=== PATIENT | male | born 1965 | race African-American/Black ===

== ENCOUNTER 2017-10-01 13:18 | Observation (INO) ==
[2017-10-01 14:28] LABS: Barbiturates Screen,Urine Negative (Negative); Benzodiazepines Screen,Urine Negative (Negative); Cannabinoid Screen,Urine Positive (Negative); Opiate Screen,Urine Positive (Negative); Phencyclidine Screen,Urine Negative (Negative)
[2017-10-01 14:31] LABS: Apearance,Urine CLEAR (Clear); Bilirubin,Urine Negative (Negative); Blood, Urine Small mg/dL (Negative); Glucose,Urine (UA) >=500 mg/dL (Negative); Hyaline Casts,Urine 9 /LPF (0-3); Ketones,Urine 5 mg/dL (Negative); Mucus,Urine Few /LPF (Occasional); Nitrite,Urine Negative (Negative); Protein,Urine >=500 MG/DL; RBC,Urine 25 /HPF (0-4); Urine Color Yellow (Yellow); Urine Specific Gravity 1.036 (1.001-1.035); WBC,Urine 6 /HPF (0-6)
[2017-10-01] MEDS ORDERED: ENOXAPARIN 100 MG/ML SYRINGE SUBCUT STA (14:37)
[2017-10-01] MEDS ORDERED: SODIUM CHLORIDE 0.9% 500 ML IV STA (14:37)
[2017-10-01] MEDS ORDERED: ASPIRIN 325 MG TABLET PO STA (14:37)
[2017-10-01 14:41] LABS: Calcium 9.1 MG/DL (8.5-10.1); Osmolality,Calculated 277.7 MOS/KG (273-304); Potassium 3.8 MMOL/L (3.5-5.1)
[2017-10-01 14:59] LABS: Albumin 4.1 G/DL (3.4-5.0); Bilirubin,Total 0.8 MG/DL (0.2-1.0); Calcium 9.8 MG/DL (8.5-10.1); Osmolality,Calculated 279.5 MOS/KG (273-304); Potassium 3.9 MMOL/L (3.5-5.1); Total Protein 8.4 G/DL (6.4-8.3)
[2017-10-01 15:18] LABS: Basophils # 0.1 10*3/uL (0.0-0.2); Basophils % 0.5 % (0.0-0.8); Eosinophils % 0.2 % (0.00-10.9); Hematocrit 45.7 VOL% (42.0-52.0); Hemoglobin 14.6 GM/DL (14.0-18.0); Immature Granulocytes % 0.3 %; Immature Granulocytes Absolute 0.03 #; Lymphocytes # 2.7 10*3/uL (1.4-4.0); Mean Corpuscular HGB Conc 31.9 GM/DL (32-36); Mean Corpuscular Hemoglobin 23 PG (27-34); Mean Corpuscular Volume 72.7 FL (87-102); Monocytes # 0.7 10*3/uL (0.11-0.8); Monocytes % 6.8 % (1.7-12.7); Neutrophils # 6.5 10*3/uL (1.4-7.4); Neutrophils % 65.2 % (38.7-73.9); Platelet Count 212 T/CUMM (130-400); Red Blood Count 6.29 MC/CUMM (3.8-5.5); Red Cell Distribution Width 16.3 % (9.3-17.3); White Blood Count 9.9 T/CUMM (4-12)
[2017-10-01] MEDS ORDERED: ALUM/MAG/SIMETH/LIDO VISC 1:1 30 ML BOTTLE PO PRN (16:47)
[2017-10-01] MEDS ORDERED: DOCUSATE SODIUM 100 MG CAPSULE PO PRN (16:47)
[2017-10-01] MEDS ORDERED: GLUCAGON 1 MG VIAL IM PRN (16:47)
[2017-10-01] MEDS ORDERED: LACTULOSE 20 GM/30 ML UDCUP PO PRN (16:47)
[2017-10-01] MEDS ORDERED: ONDANSETRON 4 MG/2 ML VIAL IV PRN (16:47)
[2017-10-01] MEDS ORDERED: DEXTROSE 50% 25 GM/50 ML VIAL IV PRN (16:47)
[2017-10-01] MEDS ORDERED: ACETAMINOPHEN 325 MG TABLET PO PRN (16:47)
[2017-10-01] MEDS: PANTOPRAZOLE 40 MG TABLET PO SCH (17:52)
[2017-10-01] MEDS ORDERED: NICOTINE 21 MG/24 HR PATCH TRANSDERM PRN (18:00)
[2017-10-01] MEDS: LISINOPRIL 5 MG TABLET PO SCH (18:42)
[2017-10-01] MEDS: INSULIN LISPRO 100 UNIT/ML SUBCUT SCH (21:30)
[2017-10-02 04:40] LABS: Basophils % 0.4 % (0.0-0.8); Eosinophils # 0.1 10*3/uL (0.0-0.87); Eosinophils % 0.7 % (0.00-10.9); Hematocrit 40.1 VOL% (42.0-52.0); Hemoglobin 13.4 GM/DL (14.0-18.0); Immature Granulocytes % 0.4 %; Immature Granulocytes Absolute 0.04 #; Lymphocytes # 4.1 10*3/uL (1.4-4.0); Lymphocytes % 45.9 % (21.2-54.2); Mean Corpuscular HGB Conc 33.4 GM/DL (32-36); Mean Corpuscular Hemoglobin 24 PG (27-34); Mean Corpuscular Volume 71.1 FL (87-102); Mean Platelet Volume 10.4 FL (9.6-12.0); Monocytes # 0.6 10*3/uL (0.11-0.8); Monocytes % 6.9 % (1.7-12.7); Neutrophils # 4.1 10*3/uL (1.4-7.4); Neutrophils % 45.7 % (38.7-73.9); Platelet Count 174 T/CUMM (130-400); Red Blood Count 5.64 MC/CUMM (3.8-5.5); Red Cell Distribution Width 14.9 % (9.3-17.3)
[2017-10-02 05:14] LABS: Calcium 8.9 MG/DL (8.5-10.1); Osmolality,Calculated 276.4 MOS/KG (273-304); Potassium 3.2 MMOL/L (3.5-5.1); Risk Ratio 5.11
[2017-10-02 06:36] LABS: Apearance,Urine Slightly Hazy (Clear); Bilirubin,Urine Negative (Negative); Blood, Urine Small mg/dL (Negative); Glucose,Urine (UA) >=500 mg/dL (Negative); Granular Casts,Urine 11 /LPF (0-1); Hyaline Casts,Urine 31 /LPF (0-3); Ketones,Urine 5 mg/dL (Negative); Mucus,Urine Many /LPF (Occasional); Nitrite,Urine Negative (Negative); Protein,Urine 100 MG/DL; RBC,Urine 10 /HPF (0-4); Squamous Epithelial Cell,Urine Occasional /HPF (0-10); Urine Color Yellow (Yellow); Urine Specific Gravity 1.028 (1.001-1.035); WBC,Urine 3 /HPF (0-6)
[2017-10-02] MEDS ORDERED: ASPIRIN EC 81 MG TABLET PO SCH (09:00)
[2017-10-02] MEDS: INSULIN LISPRO 100 UNIT/ML SUBCUT SCH ×3 (09:02→17:13)
[2017-10-02] MEDS ORDERED: DEXTROSE 50% 25 GM/50 ML VIAL IV PRN (10:37)
[2017-10-02] MEDS ORDERED: GLUCAGON 1 MG VIAL IM PRN (10:37)
[2017-10-02] MEDS ORDERED: REGADENOSON 0.4 MG/5 ML SYRINGE IV ONE (11:38)
[2017-10-02] MEDS: LISINOPRIL 5 MG TABLET PO SCH (12:27)
[2017-10-02] MEDS: PANTOPRAZOLE 40 MG TABLET PO SCH (12:27)
[2017-10-02 17:22] VITALS: BP 157/83
== END 2017-10-02 19:02 | disposition home or self-care (01) ==
LOC: N.EDINP 13:18 → N.ED 13:18 → N.TELES 18:22
PROVIDERS: ADMIT Internal Medicine; ATTEND Internal Medicine

== ENCOUNTER 2018-09-05 11:54 | Observation (INO) ==
[2018-09-05] MEDS ORDERED: PROMETHAZINE INJ 12.5 MG in SODIUM CHLORIDE 0.9% 50 ML IV STA (15:15)
[2018-09-05] MEDS ORDERED: SODIUM CHLORIDE 0.9% 1,000 ML IV STA (15:15)
[2018-09-05] MEDS ORDERED: METOCLOPRAMIDE 10 MG/2 ML VIAL IV STA (15:15)
[2018-09-05] MEDS ORDERED: PANTOPRAZOLE 40 MG VIAL IV STA (15:15)
[2018-09-05] MEDS ORDERED: PROMETHAZINE 25 MG/1 ML VIAL ONE (15:25)
[2018-09-05 16:12] LABS: Alanine Aminotransferase 16 U/L (16-61); Albumin 4.5 G/DL (3.4-5.0); Alkaline Phosphatase 112 U/L (45-117); Amylase 53 U/L (25-115); Aspartate Amino Transferase 13 U/L (0-37); Blood Urea Nitrogen 31 MG/DL (7-18); Calcium 9.8 MG/DL (8.5-10.1); Glucose 238 MG/DL (74-106); Osmolality,Calculated 289.7 MOS/KG (273-304); Total Protein 8.9 G/DL (6.4-8.3); Troponin I < 0.015 NG/ML (0.00-0.045)
[2018-09-05 16:43] LABS: Basophils % 0.3 % (0.0-0.8); Eosinophils % 0.1 % (0.00-10.9); Hemoglobin 14.1 GM/DL (14.0-18.0); Immature Granulocytes % 0.4 %; Immature Granulocytes Absolute 0.04 #; Lymphocytes % 19.6 % (21.2-54.2); Mean Corpuscular HGB Conc 30.7 GM/DL (32-36); Mean Corpuscular Volume 75.7 FL (87-102); Mean Platelet Volume 10.5 FL (9.6-12.0); Monocytes % 6.5 % (1.7-12.7); Neutrophils % 73.1 % (38.7-73.9); Platelet Count 208 T/CUMM (130-400); Red Blood Count 6.08 MC/CUMM (3.8-5.5); Red Cell Distribution Width 14.1 % (9.3-17.3); White Blood Count 10.1 T/CUMM (4-12)
[2018-09-05 16:54] LABS: Salicylate < 2.8 MG/DL (2.8-20)
[2018-09-05 16:58] LABS: Acetaminophen < 2.0 UG/ML (10-30)
[2018-09-05] MEDS ORDERED: ACETAMINOPHEN 325 MG TABLET PO PRN (17:07)
[2018-09-05] MEDS ORDERED: MORPHINE 4 MG/1 ML VIAL IV STA (17:54)
[2018-09-05] MEDS: LACTATED RINGERS 1,000 ML IV SCH (18:40)
[2018-09-05 20:21] LABS: Apearance,Urine CLEAR (Clear); Bilirubin,Urine Negative (Negative); Blood, Urine Small mg/dL (Negative); Glucose,Urine (UA) >=500 mg/dL (Negative); Ketones,Urine 5 mg/dL (Negative); Mucus,Urine Occasional /LPF (Occasional); Nitrite,Urine Negative (Negative); Protein,Urine >=500 MG/DL; RBC,Urine 22 /HPF (0-4); Squamous Epithelial Cell,Urine Occasional /HPF (0-10); Urine Color Yellow (Yellow); Urine Specific Gravity 1.037 (1.001-1.035); Urine Urobilinogen < 2.0 EU/DL (0.2-1.0); WBC,Urine 2 /HPF (0-6)
[2018-09-05 20:40] LABS: Barbiturates Screen,Urine Negative (Negative); Benzodiazepines Screen,Urine Negative (Negative); Cannabinoid Screen,Urine Negative (Negative); Opiate Screen,Urine Positive (Negative); Phencyclidine Screen,Urine Negative (Negative)
[2018-09-05] MEDS: LISINOPRIL 10 MG TABLET PO SCH (21:59)
[2018-09-05] MEDS: MORPHINE 4 MG/1 ML VIAL IV PRN (23:03)
[2018-09-05] MEDS: PROMETHAZINE 25 MG/1 ML VIAL IM PRN (23:09)
[2018-09-05] MEDS: INSULIN REGULAR 100 UNIT/ML SUBCUT SCH (23:53)
[2018-09-06] MEDS: INSULIN REGULAR 100 UNIT/ML SUBCUT SCH ×3 (06:20→18:36)
[2018-09-06] MEDS: LACTATED RINGERS 1,000 ML IV SCH ×2 (06:21→18:58)
[2018-09-06] MEDS ORDERED: LISINOPRIL 10 MG TABLET PO SCH (09:00)
[2018-09-06] MEDS ORDERED: PANTOPRAZOLE 40 MG TABLET PO SCH (09:00)
[2018-09-06] MEDS ORDERED: PANTOPRAZOLE 40 MG VIAL IV SCH (09:00)
[2018-09-06] MEDS: LISINOPRIL 10 MG TABLET PO SCH (09:22)
[2018-09-06] MEDS ORDERED: PANTOPRAZOLE 40 MG VIAL IV PRN (21:10)
[2018-09-07] MEDS: INSULIN REGULAR 100 UNIT/ML SUBCUT SCH ×4 (05:58→17:13)
[2018-09-07] MEDS: PROMETHAZINE 25 MG/1 ML VIAL IM PRN (06:06)
[2018-09-07] MEDS: LACTATED RINGERS 1,000 ML IV SCH ×3 (06:07→23:56)
[2018-09-07] MEDS: LISINOPRIL 10 MG TABLET PO SCH (09:31)
[2018-09-07] MEDS ORDERED: BUPIVACAINE 0.25% /EPI 10 ML VIAL ONE (18:40)
[2018-09-07] MEDS ORDERED: PROPOFOL 200 MG/20 ML VIAL IV ONE (19:59)
[2018-09-07] MEDS ORDERED: MIDAZOLAM 2 MG/2 ML VIAL ONE (19:59)
[2018-09-07] MEDS ORDERED: ONDANSETRON 4 MG/2 ML VIAL ONE ×2 (19:59→20:20)
[2018-09-07] MEDS ORDERED: fentaNYL 100 MCG/2 ML VIAL ONE (19:59)
[2018-09-07] MEDS ORDERED: ACETAMINOPHEN 1,000 MG/100 ML VIAL IV ONE (19:59)
[2018-09-07] MEDS ORDERED: SUCCINYLCHOLINE 200 MG/10 ML VIAL ONE (20:00)
[2018-09-07] MEDS ORDERED: ROCURONIUM 100 MG/10 ML VIAL IV ONE (20:00)
[2018-09-07] MEDS ORDERED: hydrALAZINE 20 MG/1 ML VIAL ONE (20:09)
[2018-09-07] MEDS ORDERED: hydrALAZINE 20 MG/1 ML VIAL IV ONE (20:09)
[2018-09-07] MEDS ORDERED: ONDANSETRON 4 MG/2 ML VIAL IV PRN (20:22)
[2018-09-07] MEDS ORDERED: HYDROmorphone 2 MG/1 ML VIAL IV PRN (20:22)
[2018-09-07] MEDS: MORPHINE 4 MG/1 ML VIAL IV PRN (21:23)
[2018-09-08] MEDS: INSULIN REGULAR 100 UNIT/ML SUBCUT SCH ×2 (05:45)
[2018-09-08 08:07] VITALS: BP 124/72
[2018-09-08] MEDS: LISINOPRIL 10 MG TABLET PO SCH (09:12)
== END 2018-09-08 10:48 | disposition home or self-care (01) ==
LOC: N.ED 11:54 → N.EDINP 11:54 → N.3E 17:55
PROVIDERS: ADMIT Surgery; ATTEND Surgery
PROC: LAPCHOL (2018-09-07 19:00)